=== PATIENT | male | born 1945 | race Caucasian/White ===

== ENCOUNTER 2018-08-01 00:38 | Emergency (ER) | payer MEDICARE, BC ==
[2018-08-01] MEDS ORDERED: IPRATROPIUM/ALBUTEROL 3 ML NEB INH STA (01:09)
--- NOTE | 2018-08-01 01:12 | ED Physician Documentation ---
PD HPI DYSPNEA - Stated complaint Stated Complaint: SOA - Chief complaint Chief Complaint: Resp - History obtained from History obtained from: Patient, Friend - History of Present Illness Timing - onset: How many days ago (5-6) Timing - onset during: Rest Timing - duration: Days Timing - details: Gradual onset Pain level max: 0 Pain level now: 0 Improved by: Inhaler/neb (took an albuterol inhaler which he states helped mildly.) Worsened by: Exertion, Laying flat Associated symptoms: No: Fever, Cough, Hemoptysis, Wheezing, Chest pain / discomfort Review of Systems Unable to obtain: Dementia Constitutional: denies: Fever, Chills Respiratory: reports: Cough, Wheezing GI: denies: Abdominal Pain, Vomiting, Diarrhea : denies: Dysuria, Unable to Void Skin: denies: Rash Musculoskeletal: denies: Neck pain, Back pain Neurologic: denies: Focal weakness, Numbness PD PAST MEDICAL HISTORY - Past Medical History Past Medical History: Yes Cardiovascular: Hypertension, Coronary artery disease Neuro: Dementia Endocrine/Autoimmune: Type 2 diabetes GI: None HEENT: None Psych: None Musculoskeletal: None Derm: None - Past Surgical History Past Surgical History: Yes General: Other Cardiovascular: Coronary stent - Present Medications Home Medications: Ambulatory Orders Medication Instructions Recorded Confirmed Albuterol Sulf [Ventolin Hfa 1 - 2 puffs INH Q4HR PRN #1 inhaler 08/01/18 Inhaler] Apixaban [Eliquis] 5 mg PO BID 08/01/18 08/01/18 Aspirin Chewable [[place] 81 mg PO DAILY 08/01/18 08/01/18 Aspirin] Atorvastatin [Lipitor] 80 mg PO DAILY 08/01/18 08/01/18 Carbidopa/Levodopa [Carbidopa-Levo 1 tab PO DAILY 08/01/18 08/01/18 ER 25-100 Tab] Furosemide 20 mg PO DAILY 08/01/18 08/01/18 Galantamine [Razadyne] 16 mg PO DAILY 08/01/18 08/01/18 Insulin Glargine [Lantus Solostar] 42 units SQ BID 08/01/18 08/01/18 Insulin Lispro [Humalog Kwikpen 10 - 15 units SQ TID 08/01/18 08/01/18 U-100] [place] 150 mg PO BID 08/01/18 08/01/18 Losartan [Cozaar] 50 mg PO BID 08/01/18 08/01/18 QUEtiapine [SEROquel] 25 mg PO DAILY 08/01/18 08/01/18 [place] 160 mg PO DAILY 08/01/18 08/01/18 Vit B 12 1,000 mcg PO DAILY 08/01/18 amLODIPine [Norvasc] 5 mg PO BID 08/01/18 08/01/18 - Allergies Allergies/Adverse Reactions: Allergies Allergy/AdvReac Type Severity Reaction Status Date / Time haloperidol AdvReac Nausea Verified 08/01/18 01:00 metformin AdvReac Unknown Verified 08/01/18 01:02 - Social History Does the pt smoke?: No Smoking Status: Never smoker Does the pt drink ETOH?: Yes Does the pt have substance abuse?: No - Immunizations Immunizations are current?: Yes - POLST Patient has POLST: No PD ED PE NORMAL - Vitals Vital signs reviewed: Yes - General General: Alert and oriented X 3, No acute distress, Well developed/nourished - HEENT HEENT: PERRL, Moist mucous membranes - Neck Neck: Supple, no meningeal sign - Cardiac Cardiac: RRR, Strong equal pulses - Respiratory Respiratory: No respiratory distress, Other (Diminished breath sounds bilateral with occasional wheeze) - Abdomen Abdomen: Soft, Non tender, Non distended - Derm Derm: Warm and dry - Extremities Extremities: Other (1+ BLE edema.) - Neuro Neuro: Alert and oriented X 3 - Psych Psych: Normal mood, Normal affect Results - Vitals Vitals: Vital Signs - 24 hr 08/01/18 08/01/18 08/01/18 00:48 01:20 01:30 Temperature 36.5 C Heart Rate 82 68 72 Respiratory 19 16 16 Rate Blood Pressure 164/83 H 151/58 H O2 Saturation 98 97 08/01/18 08/01/18 08/01/18 01:35 01:40 01:55 Temperature Heart Rate 70 72 73 Respiratory 17 17 16 Rate Blood Pressure 145/79 H O2 Saturation 100 96 97 08/01/18 08/01/18 02:05 02:08 Temperature Heart Rate 63 62 Respiratory 16 15 Rate Blood Pressure 127/60 O2 Saturation 99 Oxygen O2 Source Room air - EKG (time done) 0127 Rhythm: NSR (74) [place]: Normal Intervals: Normal OK QRS: Normal Ischemia: T wave inversion (I, aVL, V5-6) - Labs Labs: Laboratory Tests 08/01/18 08/01/18 08/01/18 01:08 01:08 01:08 WBC 11.0 H RBC 3.80 L Hgb 11.4 L Hct 34.0 L MCV 89.4 MCH 30.1 MCHC 33.7 RDW 13.7 Plt Count 205 MPV 7.2 L Neut # (Auto) 9.3 H Lymph # (Auto) 0.8 L [place] # (Auto) 0.7 Eos # (Auto) 0.2 Baso # (Auto) 0.0 Absolute Nucleated RBC 0.01 Nucleated RBC % 0.0 Sodium 135 Potassium 4.9 Chloride 103 Carbon Dioxide 22 Anion Gap 10.0 BUN 45 H Creatinine 3.2 H Estimated GFR (MDRD) 19 L Glucose 358 H Calcium 9.3 Total Bilirubin 0.6 AST 14 ALT 12 Alkaline Phosphatase 101 Troponin I < 0.04 B-Natriuretic Peptide Total Protein 6.6 L Albumin 3.5 Globulin 3.1 Albumin/Globulin Ratio 1.1 Lipase 42 08/01/18 01:08 WBC RBC Hgb Hct MCV MCH MCHC RDW Plt Count MPV Neut # (Auto) Lymph # (Auto) [place] # (Auto) Eos # (Auto) Baso # (Auto) Absolute Nucleated RBC Nucleated RBC % Sodium Potassium Chloride Carbon Dioxide Anion Gap BUN Creatinine Estimated GFR (MDRD) Glucose Calcium Total Bilirubin AST ALT Alkaline Phosphatase Troponin I B-Natriuretic Peptide 64 Total Protein Albumin Globulin Albumin/Globulin Ratio Lipase - Rads (name of study) Chest x-ray Radiology: Prelim report reviewed, EMP read contemporaneously, See rad report ( No acute abnormality) PD MEDICAL DECISION MAKING - ED course Complexity details: reviewed results, re-evaluated patient, considered di fferential, d/w patient ED course: 73-year-old male presents to the emergency department with what appears to be COPD versus reactive airway disease. Given breathing treatments and feels much better. No hypoxia. No respiratory distress. Ambulating well. No evidence of CHF exacerbation. Does not require supplemental oxygen. Will prescribe an inhaler for home and follow-up with his doctor. Patient counseled regarding signs and symptoms for which I believe and urgent re-evaluation would be necessary. Patient with good understanding of and agreement to plan and is comfortable going home at this time This document was made in part using voice recognition software. While efforts are made to proofread this document, sound alike and grammatical errors may occur. Departure - Departure Disposition: 01 Home, Self Care Clinical Impression: Dyspnea Qualifiers: Dyspnea type: unspecified Qualified Code(s): R06.00 - Dyspnea, unspecified Condition: Good Instructions: ED Dyspnea Shortness of Breath Follow-Up: Lisa Carrasquillo ARNP [Primary Care Provider] - Within 1 week Prescriptions: Albuterol Sulf [Ventolin Hfa Inhaler] 1 - 2 puffs INH Q4HR PRN #1 inhaler PRN Reason: Shortness Of Air/Wheezing Comments: Follow-up with your doctor for further care. You need to have your glucose levels rechecked as it was 358 tonight. You should also have your creatinine rechecked. Your creatinine was 3.2 tonight. Drink plenty of water. Use the inhaler as needed.
[2018-08-01 01:20] LABS: BASOPHILS % (AUTO) 0.4 %; EOSINOPHILS # (AUTO) 0.2 10^3/uL (0.0-0.7); EOSINOPHILS % (AUTO) 1.8 %; HGB - HEMOGLOBIN 11.4 g/dL (14.0-18.0); LYMPHOCYTES # (AUTO) 0.8 10^3/uL (1.5-3.5); LYMPHOCYTES % (AUTO) 7.3 %; MEAN CORPUSCULAR HEMOGLOBIN 30.1 pg (27.0-31.0); MEAN CORPUSCULAR HGB CONC 33.7 g/dL (32.0-36.0); MEAN CORPUSCULAR VOLUME 89.4 fL (80.0-94.0); MEAN PLATELET VOLUME 7.2 fL (7.4-11.4); MONOCYTES # (AUTO) 0.7 10^3/uL (0.0-1.0); NEUTROPHILS # (AUTO) 9.3 10^3/uL (1.5-6.6); NEUTROPHILS % (AUTO) 84.5 %; PLT - PLATELET COUNT 205 10^3/uL (130-450); RED CELL DISTRIBUTION WIDTH 13.7 % (12.0-15.0)
[2018-08-01 01:30] LABS: ALBUMIN 3.5 g/dL (3.2-5.5); ALBUMIN/GLOBULIN RATIO 1.1 (1.0-2.2); BILIRUBIN,TOTAL 0.6 mg/dL (0.2-1.0); CALCIUM 9.3 mg/dL (8.5-10.3); CREATININE 3.2 mg/dL (0.6-1.2); TOTAL PROTEIN 6.6 g/dL (6.7-8.2)
[2018-08-01] MEDS ORDERED: ALBUTEROL NEB 2.5 MG/3 ML INH STA (01:54)
[2018-08-01 02:09] VITALS: BP 127/60
--- NOTE | 2018-08-01 02:13 | XRAY Report ---
Reason: dyspnea Procedure Date: 08/01/2018 Accession Number: [id number] / [id number] Procedure: XR - Chest 1 View X-Ray CPT Code: 00724 FULL RESULT: EXAM: CHEST RADIOGRAPHY EXAM DATE: 08/01/2018 01:44 AM. CLINICAL HISTORY: Dyspnea. COMPARISON: None. TECHNIQUE: 1 view. FINDINGS: Lungs/Pleura: No focal opacities evident. No pleural effusion. No pneumothorax. Mediastinum: Within exam limitations, the cardiomediastinal contour is normal. Other: None. IMPRESSION: Normal single view chest. [facility]
== END 2018-08-01 02:30 | disposition home or self-care (01) ==
LOC: ED 00:38
DX: R06.00 Dyspnea, unspecified (principal); E11.65 Type 2 diabetes mellitus with hyperglycemia; Z79.4 Long term (current) use of insulin; I10 Essential (primary) hypertension; I25.10 Atherosclerotic heart disease of native coronary artery without angina pectoris; Z95.5 Presence of coronary angioplasty implant and graft; Z79.01 Long term (current) use of anticoagulants; Z79.82 Long term (current) use of aspirin; F03.90 Unspecified dementia, unspecified severity, without behavioral disturbance, psychotic disturbance, mood disturbance, and anxiety
CPT/HCPCS: 36415; 71045; 80053; 83690; 83880; 84484; 85025; 93005; 94640; 94664; 99284